=== PATIENT | female | born 1995 | race Caucasian/White ===

== ENCOUNTER 2022-01-22 12:45 | Emergency (ER) | payer OTHER ==
[~2022-01-22] VITALS: Ht 157.5 cm; Wt 72.6 kg
[2022-01-22 13:20] VITALS: BP 126/76
[2022-01-22] MEDS ORDERED: diphenhdrAMINE HCL 50 MG/1 ML VL IM ONE (15:00)
[2022-01-22] MEDS ORDERED: methylPREDNISolone SOD SUCC 125 MG/2 ML VL IM ONE (15:00)
[2022-01-22] MEDS ORDERED: DIPH25CA66 PO (15:04)
[2022-01-22] MEDS ORDERED: PRED20TA2 PO (15:04)
== END 2022-01-22 14:45 | disposition home or self-care (01) ==
LOC: ER 12:45
DX: T78.40XA Allergy, unspecified, initial encounter (principal); F17.210 Nicotine dependence, cigarettes, uncomplicated; Z79.899 Other long term (current) drug therapy; Y92.89 Other specified places as the place of occurrence of the external cause
CPT/HCPCS: 96372; 99284; J1200; J2930